=== PATIENT | female | born 1995 | race Caucasian/White ===

== ENCOUNTER 2020-12-13 16:24 | Emergency (ER) | payer OTHER ==
[~2020-12-13 16:24] MED LIST: AMOXICILLIN500 MG PO; ATARAX25 MG PO; MOTRIN600 MG PO; ORABASE11.9 GM TOP; PEPCID AC20 MG PO; PREDNISONE 10MG10 MG PO; PREDNISONE20 MG PO; ROBITUSSIN W/COD5 ML PO; TESSALON PERLE100 MG PO
[2020-12-13] MEDS ORDERED: AMOXICILLIN500 MG PO (17:16)
== END 2020-12-13 17:27 | disposition home or self-care (01) ==
LOC: FER 16:24
DX: K05.10 Chronic gingivitis, plaque induced (principal); R68.84 Jaw pain; Z88.8 Allergy status to other drugs, medicaments and biological substances
CPT/HCPCS: 99283

== ENCOUNTER 2021-03-29 02:31 | Emergency (ER) | payer OTHER ==
[2021-03-29 04:02] LABS: BASOPHIL 0.4 % (0-2); EOSINOPHIL 1.5 % (0-5); HCT 38.9 % (37.0-47.0); HGB 13.3 g/dl (12.5-16.0); LYMPHOCYTE 35.1 % (15-48); MCH 30.6 pg (25.0-31.0); MCHC 34.2 g/dL (32.0-36.0); MCV 89.6 fL (78.0-100.0); MONOCYTE 8.1 % (0-12); MPV 10.6 fL (6.0-9.5); NEUTROPHIL 54.8 % (41-80); NRBC 0; PLT 292 K/uL (150-400); RBC 4.34 M/uL (4.20-5.40); RDW 11.9 % (11.5-14.0); WBC 7.8 K/uL (4.0-10.5)
[2021-03-29 04:19] LABS: ALBUMIN 3.8 g/dL (3.4-5.0); BILIRUBIN - TOTAL 0.2 mg/dL (0.2-1.0); BUN/CREAT RATIO (CALC) 17.7 RATIO; CREATININE 0.62 mg/dL (0.51-0.95); GLOBULIN (CALCULATION) 3.7 g/dL; POTASSIUM 3.3 mmol/L (3.5-5.1); TOTAL PROTEIN 7.5 g/dL (6.4-8.2)
[2021-03-29 04:37] LABS: BILIRUBIN 1+ mg/dL (NEGATIVE); BLOOD 3+ Ery/uL (NEGATIVE); CLARITY CLEAR (CLEAR); COLOR YELLOW (YELLOW); GLUCOSE (U) NORMAL (NORMAL); LEUKOCYTES TRACE Leu/uL (NEGATIVE); NITRITE NEGATIVE (NEGATIVE); PROTEIN 1+ mg/dL (NEGATIVE); SPECIFIC GRAVITY >=1.030 (1.001-1.030); UROBILINOGEN 0.2 mg/dL (0.2-1.0)
[2021-03-29 04:45] LABS: BACTERIA 2+; URINARY RBC TNTC
[2021-03-29] MEDS ORDERED: MACROBID100 MG PO (05:23)
== END 2021-03-29 05:29 | disposition home or self-care (01) ==
LOC: FER 02:31
PROVIDERS: Emergency Medicine
DX: N39.0 Urinary tract infection, site not specified (principal); R19.7 Diarrhea, unspecified
CPT/HCPCS: 36415; 74022; 80053; 81001; 83690; 85025

== ENCOUNTER 2021-08-30 19:12 | Emergency (ER) | payer OTHER ==
[~2021-08-30 19:12] MED LIST changes: +MACROBID100 MG PO
[2021-08-31] MEDS ORDERED: AUGMENTIN 875-1 EACH PO (00:27)
== END 2021-08-31 00:56 | disposition home or self-care (01) ==
LOC: FER 19:12
DX: H66.91 Otitis media, unspecified, right ear (principal); Z88.8 Allergy status to other drugs, medicaments and biological substances
CPT/HCPCS: 99282

== ENCOUNTER 2022-01-14 12:50 | Emergency (ER) | payer OTHER ==
[~2022-01-14 12:50] MED LIST changes: +AUGMENTIN 875-1 EACH PO
[2022-01-14 14:57] LABS: INFLUENZA A NAA POSITIVE (NEGATIVE)
[2022-01-14 14:59] LABS: CORONAVIRUS 2019 SARS-COV-2 POSITIVE (NEGATIVE)
[2022-01-14] MEDS ORDERED: TAMIFLU 75MG CA75 MG PO (15:03)
[2022-01-14] MEDS ORDERED: VENTOLIN HFA IN18 GM INH (15:03)
[2022-01-14] MEDS ORDERED: MEDROL 4MG DOSEP4 MG PO (15:03)
== END 2022-01-15 15:27 | disposition home or self-care (01) ==
LOC: FER 12:50
PROVIDERS: Nurse Practitioner Family
DX: U07.1 COVID-19 (principal); J10.1 Influenza due to other identified influenza virus with other respiratory manifestations; Z88.8 Allergy status to other drugs, medicaments and biological substances; Z28.311 Partially vaccinated for COVID-19
CPT/HCPCS: 71045; J1100; U0002